=== PATIENT | female | born 1980 | race Caucasian/White ===

== ENCOUNTER 2018-04-11 22:06 | Emergency (ER) | payer OTHER ==
[2018-04-11] MEDS ORDERED: methylPREDNISolone SOD SUCCI 125 MG/2 ML VIAL IV STA (22:18)
[2018-04-11] MEDS ORDERED: EPINEPHrine 1 MG/ML 1 ML AMP IM STA ×2 (22:18→22:22)
[2018-04-11] MEDS ORDERED: FAMOTIDINE 20 MG/2 ML VIAL IV STA ×2 (22:18→22:22)
[2018-04-11] MEDS ORDERED: SODIUM CHLORIDE 0.9% 1,000 ML IV STA (22:22)
[2018-04-11 23:02] VITALS: RESP 18
--- NOTE | 2018-04-11 23:58 | ED ---
General Adult HPI - General Chief complaint: Allergic Reaction Stated complaint: Allergeric reaction Time Seen by Provider: 04/11/18 22:15 Source: patient, family, RN notes reviewed, old records reviewed Mode of arrival: ambulatory Limitations: no limitations - History of Present Illness Initial comments: Chief complaint history of present illness a 38-year-old female comes to emergency room with complaint of ALLERGIC reaction to unknown substance or chemical. Patient reports she takes for the that the milligrams of Benadryl at home prior to coming emergency room. Past history ALLERGIES to bee venom. - Related Data Home Medications Medication Instructions Recorded Confirmed ALPRAZolam [Xanax] 1 mg PO BID 08/08/16 04/11/18 DULoxetine HCL [Cymbalta] 60 mg PO BID 09/14/17 04/11/18 Previous Rx's Medication Instructions Recorded EPINEPHrine [Epipen 2-Aneudy] 0.3 mg SQ ONCE #1 auto.injct 04/11/18 predniSONE 20 mg PO DAILY #3 tab 04/11/18 Allergies Allergy/AdvReac Type Severity Reaction Status Date / Time bee venom protein (honey bee) Allergy Unknown Verified 04/11/18 22:12 Review of Systems ROS Statement: Those systems with pertinent positive or pertinent negative responses have been documented in the HPI. Review of systems patient reports she feels swollen eyes some difficulty breathing and shortness of breath no wheezing. She does report she also has anxiety. Patient does not know what caused the reaction was going on for approximately one hour. Patient denies any pain. Past medical problems anxiety and back pain. Surgery same. Family history noncontributory. Denies smoking. ROS Other: All systems not noted in ROS Statement are negative. Past Medical History Past Medical History: No Reported History History of Any Multi-Drug Resistant Organisms: None Reported Past Surgical History: Back Surgery Past Psychological History: Anxiety, Depression Smoking Status: Current every day smoker Past Alcohol Use History: Occasional Past Drug Use History: None Reported General Exam - General Exam Comments Initial Comments: General: The patient is awake and alert, states she's had an ALLERGIC reaction to some unknown substance. Vital signs are stable. Eye: Pupils are equal, round and reactive to light, extra-ocular movements are intact ; there is normal conjunctiva bilaterally. No signs of icterus. Feels as though her eyes are swelling, mild swelling noted. Ears, nose, mouth and throat: There are moist mucous membranes and no oral lesions. Neck: The neck is supple, there is no tenderness, no stridor Cardiovascular: There is a regular rate and rhythm. No murmur, rub or gallop is appreciated. Respiratory: Lungs are clear to auscultation, respirations are non-labored, breath sounds are equal. No wheezes, stridor, rales, or rhonchi. Feel short of breath, no wheezing Gastrointestinal: Soft, non-distended, non-tender abdomen without masses or organomegaly noted. There is no rebound or guarding present. No CVA tenderness. Bowel sounds are unremarkable. Back: There is no tenderness to palpation in the midline. There is no obvious deformity. No rashes noted. Musculoskeletal: Normal ROM, no tenderness, There is no pedal edema. There is no calf tenderness or swelling. Sensation intact. Pulses equal bilaterally 2+. Neurological: Alert oriented no neuro deficits. Skin: Patient was out in the sun today has some sunburn. Minimal no hives. Psychiatric: History of anxiety attacks in the past. Limitations: no limitations Course Vital Signs 04/11/18 04/11/18 22:08 23:01 Temperature 97.1 F L Pulse Rate 106 H 94 Respiratory 20 18 Rate Blood Pressure 126/85 123/75 O2 Sat by Pulse 100 97 Oximetry Medical Decision Making - Medical Decision Making Medical decision making; 38-year-old female who states she's had an ALLERGIC reaction to unknown substance. Past history significant to reactions to bee venom but she did not get stung today. The patient was given 0.2 mg of epinephrine IM, Pepcid IV, site Medrol IV. She had taken Benadryl by mouth prior to coming emergency room. While in emergency room the patient was monitored. Rested comfortably. Symptoms subsided. Patient be discharged home with advice to take prednisone 20 mg daily for the next 2 days. Continue with Benadryl 50 mg twice a day. And a prescription for new EpiPen to be taken. Return emergency room as needed Disposition Clinical Impression: Allergic reaction Disposition: HOME SELF-CARE Condition: Fair Instructions: Anaphylaxis (ED) Additional Instructions: Take Benadryl 50 mg twice daily. Prednisone 20 mg daily for the next 2 days. Use EpiPen as directed when needed. Follow-up with family physician return emergency room as needed Prescriptions: EPINEPHrine [Epipen 2-Aneudy] 0.3 mg SQ ONCE #1 auto.injct predniSONE 20 mg PO DAILY #3 tab Is patient prescribed a controlled substance at d/c from ED?: No Referrals: Kip Burch MD [Primary Care Provider] - 1-2 days Time of Disposition: 23:58
[2018-04-12 00:10] VITALS: BP 115/65; PULSE 90; TEMP 97.9
== END 2018-04-12 00:10 | disposition home or self-care (01) ==
LOC: EC 22:06
DX: T78.40XA Allergy, unspecified, initial encounter (principal); F41.9 Anxiety disorder, unspecified; F32.9 Major depressive disorder, single episode, unspecified; F17.200 Nicotine dependence, unspecified, uncomplicated; Z79.899 Other long term (current) drug therapy; Z91.030 Bee allergy status
CPT/HCPCS: 99283; 96374; 96375; 96361 ×2; 96372; J0171; J2930

== ENCOUNTER 2018-11-14 13:08 | Emergency (ER) | payer OTHER ==
[2018-11-14 13:30] VITALS: RESP 18
[2018-11-14] MEDS ORDERED: SODIUM CHLORIDE 0.9% 1,000 ML IV ONE (14:23)
[2018-11-14] MEDS ORDERED: diphenhydrAMINE 50 MG/ML 1 ML VIAL IVP STA (14:23)
[2018-11-14] MEDS ORDERED: KETOROLAC 30 MG/ML 1 ML VIAL IVP STA (14:23)
[2018-11-14] MEDS ORDERED: METOCLOPRAMIDE 5 MG/ML 2 ML VIAL IVP STA (14:23)
--- NOTE | 2018-11-14 15:35 | ED ---
Headache HPI - General Chief Complaint: Headache Stated Complaint: Headache Time Seen by Provider: 11/14/18 14:11 Mode of arrival: ambulatory Limitations: no limitations - History of Present Illness Initial Comments: 38-year-old female patient presents to the emergency department today for evaluation of headache 4 weeks. Patient states about a month ago she was diagnosed with ear infection. States that she did finish a amoxicillin one week ago. States that her headache has persisted and has become worse. States that the headache is frontal and occipital. States it worsens at times, but never really goes away. States she is sensitive to light and sound with this. States she is having some nausea. Patient states she has had nasal congestion and drainage is not improved after antibiotics. Patient denies history of migraine headache or similar symptoms. States that she is having some tingling to bilateral hands and feet. She denies any weakness to her extremities. She denies any head injury. States she is having some blurred vision with this but denies any double vision. Patient denies any recent rash, fever, chills, shortness breath, chest pain, abdominal pain, diarrhea, constipation, back pain , hematuria, dysuria, urinary urgency, urinary frequency, or any other complaints. - Related Data Home Medications Medication Instructions Recorded Confirmed Ibuprofen [Motrin] 800 mg PO DAILY PRN 11/14/18 11/14/18 Meclizine [Antivert] 12.5 mg PO BID 11/14/18 11/14/18 Previous Rx's Medication Instructions Recorded Amoxic-Pot Clav 875-125Mg 1 tab PO Q12HR #28 tablet 11/14/18 [Augmentin 875-125] predniSONE 50 mg PO DAILY #5 tablet 11/14/18 Allergies Allergy/AdvReac Type Severity Reaction Status Date / Time bee venom protein (honey bee) Allergy Unknown Verified 11/14/18 14:29 Review of Systems ROS Statement: Those systems with pertinent positive or pertinent negative responses have been documented in the HPI. ROS Other: All systems not noted in ROS Statement are negative. Past Medical History Past Medical History: No Reported History History of Any Multi-Drug Resistant Organisms: None Reported Past Surgical History: Back Surgery Past Psychological History: Anxiety, Depression Smoking Status: Current every day smoker Past Alcohol Use History: Occasional Past Drug Use History: None Reported General Exam Limitations: no limitations General appearance: alert, in no apparent distress, other (This is a well- developed, well-nourished adult female patient in no acute distress. Vital signs upon presentation are temperature 97.7F, pulse 94, respirations 18, blood pressure 120/86, pulse ox 100% on room air.) Eye exam: Present: normal appearance, PERRL, EOMI. Absent: scleral icterus, conjunctival injection, periorbital swelling ENT exam: Present: normal exam, normal oropharynx, mucous membranes moist, TM's normal bilaterally Respiratory exam: Present: normal lung sounds bilaterally. Absent: respiratory distress, wheezes, rales, rhonchi, stridor Cardiovascular Exam: Present: regular rate, normal rhythm, normal heart sounds. Absent: systolic murmur, diastolic murmur, rubs, gallop, clicks Neurological exam: Present: alert, oriented X3, CN II-XII intact, other ( Strength in all flexion wheezes 5/5.) Psychiatric exam: Present: normal affect, normal mood Skin exam: Present: warm, dry, intact, normal color. Absent: rash Course Vital Signs 11/14/18 13:27 Temperature 97.7 F Pulse Rate 94 Respiratory 18 Rate Blood Pressure 128/86 O2 Sat by Pulse 100 Oximetry Medical Decision Making - Medical Decision Making 38-year-old female patient presents to the emergency department today for evaluation of headache for the last 4 weeks. Patient states that started with sinus congestion and drainage. States her physician to treat her with amoxicillin and nasal spray however she did not improve once the medications are complete. Patient states she is having some light and sound sensitivity with this some blurred vision with this. Physical examination is unremarkable. Patient is neurologically intact with no focal deficits. CT brain did reveal 2 areas of old infarct, no acute intracranial abnormality. Patient did have evidence of acute sinusitis with extensive thickening of the maxillary, ethmoid , and sphenoid sinuses. We will treat for sinusitis with Augmentin and a 5 day course of steroids. I did inform patient of all CT results per she is instructed to follow-up with neurology for further evaluation. She is instructed to start taking an aspirin daily. Return parameters were discussed in detail. She verbalizes understanding and agrees with this plan - Radiology Data Radiology results: report reviewed, image reviewed CT sinuses without contrast obtained. Report is reviewed in its entirety. Impression by Dr. Enrique shows sinusitis. No focal bone obstruction CT brain without contrast was obtained. Report was reviewed in its entirety. Impression by Dr. Enrique shows compared to old exam isn't infarct in the right posterior parietal lobe that appears old. There is also an old multifocal lacunar infarct in the right caudate nucleus. No acute intracranial abnormality. Sinusitis noted that is also present on the old exam. Disposition Clinical Impression: Sinusitis, Headache Disposition: HOME SELF-CARE Condition: Good Instructions: Sinusitis (ED), Acute Headache (ED) Additional Instructions: Take medications as directed. Complete antibiotic prescription and steroid prescription in full. Follow up with your primary care physician for recheck in 1-2 days. Return immediately for any new, worsening, or concerning symptoms. Prescriptions: Amoxic-Pot Clav 875-125Mg [Augmentin 875-125] 1 tab PO Q12HR #28 tablet predniSONE 50 mg PO DAILY #5 tablet Is patient prescribed a controlled substance at d/c from ED?: No Referrals: Kip Burch MD [Primary Care Provider] - 1-2 days Abdirashid Dos Santos MD [STAFF PHYSICIAN] - 1-2 days Time of Disposition: 17:11
[2018-11-14] MEDS ORDERED: HYDROmorphone 1 MG/ML 1 ML SYRINGE IVP STA (16:22)
--- NOTE | 2018-11-14 16:42 | CT ---
EXAMINATION TYPE: CT sinus wo con DATE OF EXAM: 11/14/2018 COMPARISON: None HISTORY: Headache. CT DLP: 1147.6 mGycm. Automated Exposure Control for Dose Reduction was Utilized. TECHNIQUE: CT scan of the sinuses is performed without contrast, axial images are obtained, coronal r eformatted images are also reviewed. FINDINGS: There is extensive mucosal thickening in the sphenoid maxillary and ethmoid sinuses. I see no focal bone destruction. The maxilla is intact. Nasal bone is intact. I see no bony destructive pro cess. The orbital margins are intact. IMPRESSION: Sinusitis. No focal bone destruction.
--- NOTE | 2018-11-14 16:45 | CT ---
EXAMINATION TYPE: CT brain wo con DATE OF EXAM: 11/14/2018 COMPARISON: 09/21/2011 HISTORY: Headache. CT DLP: 1147.6 mGycm. Automated Exposure Control for Dose Reduction was Utilized. TECHNIQUE: CT scan of the head is performed without contrast. FINDINGS: Ventricles of normal size. There is no mass effect nor midline shift. There is no sign of i ntracranial hemorrhage. There is 2 cm hypodense area in the cortex right posterior parietal lobe cons istent with old infarct. There is small 5 mm linear area of hypodensity in the superior aspect right caudate nucleus. There is mucosal thickening in the paranasal sinuses. IMPRESSION: Compared to old exam there is an infarct in the right posterior parietal lobe that appears old. There is also an old multifocal lacunar infarct in the right caudate nucleus. No acute intracranial abnorm ality. Sinusitis noted that is also present on the old exam.
[2018-11-14] MEDS ORDERED: AMOXIC-POT CLAV 875MG STARTER 2 EACH TABLET PO STA (17:12)
[2018-11-14] MEDS ORDERED: ONDANSETRON 4 MG ODT STARTER PACK 2 TAB BTL PO STA (17:12)
[2018-11-14] MEDS ORDERED: ONDANSETRON 4 MG/2 ML VIAL IVP STA (17:12)
[2018-11-14 18:19] VITALS: BP 122/76; PULSE 90; TEMP 98.1
== END 2018-11-14 18:09 | disposition home or self-care (01) ==
LOC: EC 13:08
DX: J32.9 Chronic sinusitis, unspecified (principal); H53.8 Other visual disturbances; F17.200 Nicotine dependence, unspecified, uncomplicated; Z79.899 Other long term (current) drug therapy; Z91.030 Bee allergy status; Z86.73 Personal history of transient ischemic attack (TIA), and cerebral infarction without residual deficits
CPT/HCPCS: 70450; 70486; 99284; 96374; 96375 ×4; 96361 ×3; J1200; J2765; J2405; J1885; J1170; S0119

== ENCOUNTER 2018-11-28 09:09 | Emergency (ER) | payer OTHER ==
[2018-11-28 09:17] VITALS: RESP 18
--- NOTE | 2018-11-28 09:40 | ED ---
General Adult HPI - General Chief complaint: Extremity Injury, Upper Stated complaint: Arm Injury Time Seen by Provider: 11/28/18 09:10 Source: patient, RN notes reviewed Mode of arrival: ambulatory Limitations: no limitations - History of Present Illness Initial comments: This is a 38-year-old female presents emergency department after she had fallen down 6 steps at home. Patient states this occurred yesterday. Patient states she did hit her head has a little bit of an abrasion to the left cheek but states she did not lose consciousness she was not dazed she does not have a headache and she has no significant tenderness over that area. Patient comes in complaining of right humerus and right forearm pain. Patient denies any neck injury. Patient denies any chest back or abdominal injury. Patient denies any extremity injury. - Related Data Home Medications Medication Instructions Recorded Confirmed Ibuprofen [Motrin] 800 mg PO DAILY PRN 11/14/18 11/14/18 Meclizine [Antivert] 12.5 mg PO BID 11/14/18 11/14/18 Previous Rx's Medication Instructions Recorded Amoxic-Pot Clav 875-125Mg 1 tab PO Q12HR #28 tablet 11/14/18 [Augmentin 875-125] predniSONE 50 mg PO DAILY #5 tablet 11/14/18 Allergies Allergy/AdvReac Type Severity Reaction Status Date / Time bee venom protein (honey bee) Allergy Unknown Verified 11/28/18 09:17 Review of Systems ROS Statement: Those systems with pertinent positive or pertinent negative responses have been documented in the HPI. ROS Other: All systems not noted in ROS Statement are negative. Past Medical History Past Medical History: No Reported History History of Any Multi-Drug Resistant Organisms: None Reported Past Surgical History: Back Surgery Past Psychological History: Anxiety, Depression Smoking Status: Current every day smoker Past Alcohol Use History: Occasional Past Drug Use History: None Reported General Exam - General Exam Comments Initial Comments: GENERAL Patient is well-developed and well-nourished. Patient is in mild distress. EYES Patient's pupils are equal and round. Extraocular motion is intact SKIN Unremarkable NEURO The patient is alert and oriented 3 PYSCH Patient has normal interpersonal interactions. MUSCULOSKELETAL Patient's upper humerus is extremely tender as well as mid forearm. Patient has good flexion-extension of the wrist. Patient has good cap refill of all fingers patient has good sensation of all fingers. Limitations: no limitations Course Vital Signs 11/28/18 09:15 Temperature 97.9 F Pulse Rate 109 H Respiratory 18 Rate Blood Pressure 144/91 O2 Sat by Pulse 100 Oximetry Procedures - Orthopedic Splinting/Casting Injury #1 Side: right Upper Extremity Injury Location: long arm Upper Extremity Immobilizer: sling/shoulder immobilizer, posterior splint Medical Decision Making - Medical Decision Making X-ray of the forearm shows no acute fracture. X-ray of the humerus shows a comminuted spiral fracture. That is mildly displaced and angulated. After splint was applied patient still had good sensation and cap refill. Patient [facility] because she did not want to go there. I spoke with Dr. Cortez he did not want to accept the trauma. I spoke with Dr. Spaulding from [facility] and he wanted the patient sent to the emergency department and he would admit the patient and do surgery tomorrow. I spoke with Dr. Garzon from the emergency department she accepted the transfer. Disposition Clinical Impression: Comminuted fracture of humerus Disposition: OTHER INSTITUTION NOT DEFINED Is patient prescribed a controlled substance at d/c from ED?: No Referrals: Kip Burch MD [Primary Care Provider] - 1-2 days Time of Disposition: 11:27 - Out of Hospital Transfer - Req. Specs Out of Hospital Transfer - Requested Specifics: Other Emergency Center ( [facility])
--- NOTE | 2018-11-28 09:55 | XR ---
EXAMINATION TYPE: XR humerus RT , 2 VIEWS DATE OF EXAM ORDERED: 11/28/2018 HISTORY: Pain. COMPARISON: None. FINDINGS: There is a comminuted, mildly displaced and mildly angulated fracture of the mid diaphysis of the right humerus. IMPRESSION: COMMINUTED, MILDLY DISPLACED AND MILDLY ANGULATED FRACTURE OF THE MID DIAPHYSIS OF THE RIGHT HUMERUS. CODE A: INITIAL ENCOUNTER FOR CLOSED FRACTURE.
--- NOTE | 2018-11-28 09:56 | XR ---
EXAMINATION TYPE: XR forearm RT , 2 VIEWS DATE OF EXAM ORDERED: 11/28/2018 HISTORY: Pain. COMPARISON: None. FINDINGS: No long bone fractures identified. No other osseous lesion is seen. IMPRESSION: NORMAL RADIUS AND ULNA.
[2018-11-28] MEDS ORDERED: KETOROLAC 60 MG/2 ML VIAL IM STA (10:39)
[2018-11-28] MEDS ORDERED: ONDANSETRON ODT 4 MG TAB PO STA (10:39)
[2018-11-28] MEDS ORDERED: HYDROmorphone 1 MG/ML 1 ML SYRINGE IM STA (10:39)
[2018-11-28] MEDS ORDERED: LORazepam 0.5 MG TAB PO STA (11:23)
[2018-11-28 12:02] VITALS: BP 108/80; PULSE 100; TEMP 97.8
== END 2018-11-28 12:00 | disposition short-term general hospital (02) ==
LOC: EC 09:09
DX: S42.351A Displaced comminuted fracture of shaft of humerus, right arm, initial encounter for closed fracture (principal); F17.200 Nicotine dependence, unspecified, uncomplicated; Z79.899 Other long term (current) drug therapy; Z91.030 Bee allergy status; W10.9XXA Fall (on) (from) unspecified stairs and steps, initial encounter; Y92.009 Unspecified place in unspecified non-institutional (private) residence as the place of occurrence of the external cause
CPT/HCPCS: 73060; 73090; 99284; 29105; 96372 ×2; J1885; J1170

== ENCOUNTER → 2019-01-14 | Outpatient (CLI) | payer OTHER ==
--- NOTE | 2019-01-14 17:58 | US ---
EXAMINATION TYPE: US carotid duplex BILAT DATE OF EXAM: 01/14/2019 COMPARISON: NONE CLINICAL HISTORY: Z86.73 History of stroke. EXAM MEASUREMENTS: RIGHT: Peak Systolic Velocity (PSV) cm/sec ----- Right CCA: 88.7 ----- Right ICA: 94.3 ----- Right ECA: 108.2 ICA/CCA ratio: 1.1 RIGHT: End Diastole cm/sec ----- Right CCA: 28.9 ----- Right ICA: 50.3 ----- Right ECA: 35.3 LEFT: Peak Systolic Velocity (PSV) cm/sec ----- Left CCA: 106.4 ----- Left ICA: 108.2 ----- Left ECA: 85.4 ICA/CCA ratio: 1.0 LEFT: End Diastole cm/sec ----- Left CCA: 37.0 ----- Left ICA: 49.1 ----- Left ECA: 24.1 VERTEBRALS (direction of flow): Right Vertebral: Antegrade Left Vertebral: Antegrade Rhythm: Normal Minimal amount of plaque visualized bilaterally. No elevated velocities visualized, no significant st enosis. IMPRESSION: 1. No significant flow-limiting stenosis. 2. Some minimal plaque is present. Criteria for Assigning % of Stenosis / Diameter reduction (Estimation based on the indirect measurements of the internal carotid artery velocities (ICA PSV). 1. Normal (no stenosis)=ICA PSV < 125 cm/s: ratio < 2.0: ICA EDV<40 cm/s. 2. Less than 50% stenosis=ICA PSV < 125 cm/s: ratio < 2.0: ICA EDV<40 cm/s. 3. 50 to 69% stenosis=ICA PSV of 125 to 230 cm/s: ration 2.0 ? 4.0: ICA EDV 40-100 cm/s. 4. Greater than 70% stenosis to near occlusion= ICA PSV > 230 cm/s: ratio > 4.0: ICA EDV > 100 cm/s. 5. Near occlusion= ICA PSV velocities may be low or undetectable: variable ratio and ICA EDV. 6. Total occlusion=unable to detect flow.
--- NOTE | 2019-01-14 18:45 | ECHOF ---
Referral Reason:Z86.73 History of stroke MEASUREMENTS -------- HEIGHT: 165.1 cm WEIGHT: 88.5 kg BP: IVSd: 1.1 cm (0.6 - 1.1) LVIDd: 3.5 cm (3.9 - 5.3) LVPWd: 1.2 cm (0.6 - 1.1) IVSs: 1.4 cm LVIDs: 1.9 cm LVPWs: 1.8 cm LAESV Index (A-L): 25.16 ml/m Ao Diam: 2.7 cm (2.0 - 3.7) AV Cusp: 2.0 cm (1.5 - 2.6) LA Diam: 3.5 cm (2.7 - 3.8) MV EXCURSION: 9.371 mm (> 18.000) MV EF SLOPE: 71 mm/s (70 - 150) EPSS: 0.3 cm MV E Ancelmo: 0.94 m/s MV DecT: 143 ms MV A Ancelmo: 1.02 m/s MV E/A Ratio: 0.93 AV maxP.13 mmHg AV meanP.90 mmHg RAP: 5.00 mmHg RVSP: 29.32 mmHg FINDINGS -------- Resting tachycardia (HR>100bpm). This was a technically good study. The left ventricular size is normal. There is borderline concentric left ventricular hypertrophy. Overall left ventricular systolic function is normal with, an EF between 55 - 60 %. The right ventricle is normal in size and function. The left atrium is normal in size. The right atrium is normal in size. The aortic valve is trileaflet, and appears structurally normal. No aortic stenosis or regurgitation. There is trace mitral regurgitation. Trace tricuspid regurgitation present. The right ventricular systolic pressure, as measured by Dopp ler, is 29.32mmHg. The pulmonic valve is normal. The aortic root size is normal. Normal inferior vena cava with normal inspiratory collapse consistent with estimated right atrial pre ssure of 5 mmHg. The pericardium is normal. CONCLUSIONS -------- 1. Resting tachycardia (HR>100bpm). 2. This was a technically good study. 3. The left ventricular size is normal. 4. There is borderline concentric left ventricular hypertrophy. 5. Overall left ventricular systolic function is normal with, an EF between 55 - 60 %. 6. The right ventricle is normal in size and function. 7. The left atrium is normal in size. 8. The right atrium is normal in size. 9. The aortic valve is trileaflet, and appears structurally normal. No aortic stenosis or regurgitati on. 10. There is trace mitral regurgitation. 11. Trace tricuspid regurgitation present. 12. The right ventricular systolic pressure, as measured by Doppler, is 29.32mmHg. 13. The pulmonic valve is normal. 14. The aortic root size is normal. 15. Normal inferior vena cava with normal inspiratory collapse consistent with estimated right atrial pressure of 5 mmHg. 16. The pericardium is normal. COMPRESSOR HOUSE OPERATOR: Tiera Leija RDCS
== END | disposition home or self-care (01) ==
LOC: RADUSMAIN 14:46
PROVIDERS: ATTEND Psychiatry & Neurology Neurology
DX: Z09 Encounter for follow-up examination after completed treatment for conditions other than malignant neoplasm (principal); I51.7 Cardiomegaly; Z86.73 Personal history of transient ischemic attack (TIA), and cerebral infarction without residual deficits
CPT/HCPCS: 93306; 93880

== ENCOUNTER → 2023-02-05 | Outpatient (CLI) | payer OTHER ==
--- NOTE | 2023-02-05 15:39 | US ---
EXAMINATION TYPE: US thyroid st tissue head/neck DATE OF EXAM: 02/05/2023 COMPARISON: NONE CLINICAL HISTORY: 43-year-old female R22.1 NECK MASS. Right neck swelling TECHNIQUE: Multiple sonographic images of the thyroid gland are obtained. FINDINGS: GLAND SIZE: Right Lobe: 4.3 x 1.3 x 1.6 cm Overall Parenchyma: homogenous Left Lobe: 4.2 x 1.5 x 1.4 cm Overall Parenchyma: homogeneous Isthmus Thickness: 0.4 cm NODULES RIGHT: # of nodules measured on right: 0 LEFT: # of nodules measured on left: 0 ISTHMUS: # of nodules measured in the isthmus: 0 Bilateral neck scanned, right neck lymph node seen measuring 2.8 x 0.7 x 1.5cm, left neck lymph node seen measuring 2.0 x 0.8 x 1.4cm . IMPRESSION: 1. No discrete thyroid nodules. Normal measurements as above. 2. A borderline enlarged lymph node on each side of the neck measuring up to 1.5 cm short axis. Proba valeria reactive/post inflammatory. These should be followed clinically. Ultrasound follow-up can be perf ormed in 3 months to ensure stability/resolution. Rescan sooner if progressive enlargement or suspici ous clinical features develop.
--- NOTE | 2023-02-06 09:08 | MM ---
Reason for Exam: Screening (asymptomatic). Baseline mammogram. Patient History: Menarche at age 11. First Full-Term at age 17. Perimenopausal. Maternal aunt had breast cancer. Last menstrual period: 01/29/2023 Risk Values: Zuleima 5 year model risk: 0.6%. NCI Lifetime model risk: 7.0%. Prior Study Comparison: Patient's first Mammogram. Tissue Density: There are scattered fibroglandular densities. Findings: Analyzed By CAD. There is no suspicious group of microcalcifications or suspicious mass in either breast. Overall Assessment: Negative, BI-RAD 1 Management: Screening Mammogram of both breasts in 1 year. A clinical breast exam by your physician is recommended on an annual basis and results should be correlated with mammographic findings. Electronically signed and approved by: Clyde Valiente D.O.
== END | disposition home or self-care (01) ==
LOC: RADMAMWWP 11:13
PROVIDERS: ATTEND Family Medicine
DX: Z12.31 Encounter for screening mammogram for malignant neoplasm of breast (principal); I63.9 Cerebral infarction, unspecified; R00.0 Tachycardia, unspecified; R51.9 Headache, unspecified; R59.0 Localized enlarged lymph nodes
CPT/HCPCS: 76536; 77067; 93225; 93226

== ENCOUNTER → 2023-05-18 | Outpatient (CLI) | payer OTHER ==
--- NOTE | 2023-05-18 08:58 | US ---
EXAMINATION TYPE: US thyroid st tissue head/neck DATE OF EXAM: 05/18/2023 COMPARISON: NONE CLINICAL INDICATION: Female, 43 years old with history of E04.9 ENLARGED THYROID; dysphagia GLAND SIZE: Right Lobe: 4.7 x 1.2 x 1.6 cm Overall Parenchyma: homogenous Left Lobe: 4.1 x 1.1 x 1.5 cm Overall Parenchyma: homogeneous Isthmus Thickness: 0.4 cm NODULES RIGHT: # of nodules measured on right: 0 LEFT: # of nodules measured on left: 0 ISTHMUS: # of nodules measured in the isthmus: 0 Bilateral neck scanned, lymph nodes bilaterally = 2.7cm on the right and 1.8cm on the left IMPRESSION: 1. No suspicious thyroid nodules. 2. Scattered bilateral lymph nodes within the neck
--- NOTE | 2023-05-18 10:44 | FL ---
EXAMINATION TYPE: FL barium swallow DATE OF EXAM: 05/18/2023 COMPARISON: None HISTORY: Choking on pills and other items TECHNIQUE: A ladder contrast UGI study is performed. FINDINGS: Contrast double contrast study passes through the esophagus. No intraluminal or extramural defects ar e evident. No secondary or tertiary contractions are evident. No reflux was evident. There is complet e stripping of the esophageal bolus in the horizontal drinking position. IMPRESSIONS: 1. No acute abnormality air-contrast esophagram
== END | disposition home or self-care (01) ==
LOC: RADUSWWP 08:26
PROVIDERS: ATTEND Family Medicine
DX: E04.9 Nontoxic goiter, unspecified (principal); R59.9 Enlarged lymph nodes, unspecified
CPT/HCPCS: 74220; 76536

== ENCOUNTER → 2024-02-05 | Outpatient (CLI) | payer OTHER ==
--- NOTE | 2024-02-05 13:16 | CA ---
Exercise Stress Test Report Name: Amairani Whiting Exam Date: 02/05/2024 09:08 Exam Location: [place] Stress Ht (in): 65 Wt (lb): 233 BSA: 2.11 Ordering Phys: Jess Ruiz MD Referring Phys: JESS RUIZ Technologist: Romel Age: 44 Gender: F : 1980 Procedure CPT: Indications: R00.0 tachycardia ICD-10 Codes: Patient History: Short of breath Medications: Meds past 24 hrs: Pretest Chest Pain: STRESS TEST Lucas Protocol Exercise Duration (min:sec): 06:[address] Depressions (mm): Angina Score: Edward Score: Resting HR (bpm): 99 Peak HR (bpm): 156 Resting BP (mmHg): 118 / 81 Peak BP (mmHg): 187 / 88 MPHR: 174 Target HR: 148 % MPHR: 90 METS: 7.1 Total Dose: Peak Dose: Atropine: Double Product: 44170 BP Response: Stress Termination: Infusion complete Stress Symptoms: No chest pain or symptoms Stress Summary: ECG ANALYSIS Resting ECG: Normal sinus rhythm Stress ECG: No significant ST-T wave changes diagnostic for ischemia CONCLUSIONS Poor excess tolerance for age achieving 7.1 METS Nonischemic ECG response to treadmill exercise Normal hemodynamic and clinical response treadmill exercise Overall normal study Dr Lyle Irby (Electronically Signed) Final Date: 05 February 2024 13:15
--- NOTE | 2024-02-05 22:35 | CA ---
Transthoracic Echo Report Name: Amairani Whiting Age: 44 Gender: F : 1980 Exam Date: 02/05/2024 08:42 Exam Location: [place] [facility] Echo Ht (in): 65 Wt (lb): 232 Ordering Physician: Atul Ruiz MD Attending/Referring Phys: Sara IVY [employer] Erector Alexandrea Haque RDCS Procedure CPT: Indications: R00.0 tachycardia Cardiac Hx: Technical Quality: Good Contrast 1: Total Dose (mL): Contrast 2: Total Dose (mL): MEASUREMENTS (Male / Female) Normal Values 2D ECHO LV Diastolic Diameter PLAX 4.3 cm 4.2 - 5.9 / 3.9 - 5.3 cm LV Systolic Diameter PLAX 3.1 cm IVS Diastolic Thickness 1.1 cm 0.6 - 1.0 / 0.6 - 0.9 cm LVPW Diastolic Thickness 1.2 cm 0.6 - 1.0 / 0.6 - 0.9 cm LV Relative Wall Thickness 0.5 RV Internal Dim ED PLAX 3.2 cm LA Systolic Diameter LX 2.8 cm 3.0 - 4.0 / 2.7 - 3.8 cm LV Diastolic Volume MOD BP 84.9 cm??? 67 - 155 / 56 - 104 cm??? LV Systolic Volume MOD BP 24.8 cm??? - 58 / 19 - 49 cm??? LV Ejection Fraction MOD BP 70.8 % >= 55 % LV Cardiac Index MOD BP 2486.9 cm???/min???m??? LV Diastolic Volume MOD 4C 81.8 cm??? LV Systolic Volume MOD 4C 25.9 cm??? LV Ejection Fraction MOD 4C 68.3 % LV Cardiac Index MOD 4C 2313.8 cm???/min???m??? LV Diastolic Length 4C 7.3 cm LV Systolic Length 4C 5.8 cm LV Diastolic Volume MOD 2C 82.7 cm??? LV Systolic Volume MOD 2C 22.1 cm??? LV Ejection Fraction MOD 2C 73.3 % LV Cardiac Index MOD 2C 2510.3 cm???/min???m??? LV Diastolic Length 2C 7.9 cm LV Systolic Length 2C 6.5 cm LA Volume 40.8 cm??? 18 - 58 / 22 - 52 cm??? LA Volume Index 18.2 cm???/m??? 16 - 28 cm???/m??? M-MODE Aortic Root Diameter MM 3.2 cm DOPPLER AV Peak Velocity 139.6 cm/s AV Peak Gradient 7.8 mmHg MV Area PHT 2.4 cm??? Mitral E Point Velocity 84.2 cm/s Mitral A Point Velocity 87.4 cm/s Mitral E to A Ratio 1.0 MV Deceleration Time 318.7 ms TR Peak Velocity 194.0 cm/s TR Peak Gradient 15.1 mmHg Right Ventricular Systolic Press 19.3 mmHg FINDINGS Left Ventricle Left ventricular ejection fraction is estimated at 60-65 %. Left ventricular cavity size normal. Mildly increased septal wall thickness. Mildly increased posterior wall thickness. Right Ventricle Normal right ventricular size. Right ventricular systolic pressure within normal limits. Right Atrium Normal right atrial size. Left Atrium Normal left atrial size. Mitral Valve Structurally normal mitral valve. Trace mitral regurgitation. Aortic Valve Trileaflet aortic valve. No aortic valve stenosis or regurgitation. Tricuspid Valve Structurally normal tricuspid valve. Mild tricuspid regurgitation. Pulmonic Valve Structurally normal pulmonic valve. Trace pulmonic regurgitation. Pericardium No pericardial effusion. Aorta Normal size aortic root and proximal ascending aorta. CONCLUSIONS Left ventricular ejection fraction is estimated at 60-65 %. Mild concentric LVH No significant valvular dysfunction No pericardial effusion Previewed by: Dr Lyle Irby (Electronically Signed) Final Date: 05 February 2024 22:35
== END | disposition home or self-care (01) ==
LOC: RADECHMAIN 08:25
PROVIDERS: ATTEND Family Medicine
DX: R00.0 Tachycardia, unspecified (principal)
CPT/HCPCS: 93017; 93306

== ENCOUNTER → 2024-08-08 | Outpatient (CLI) | payer OTHER ==
--- NOTE | 2024-08-15 18:05 | MR ---
EXAMINATION TYPE: MR lumbar spine wo con DATE OF EXAM: 08/08/2024 COMPARISON: None HISTORY: Chronic lower back pain, hx surgery. CONTRAST: 0 mL intravenous Gadavist. TECHNIQUE: Multiplanar, multisequence images of the lumbar spine were acquired. FINDINGS: Cord terminates at the L1-L2 level. Disc heights are preserved. Disc hydration T12 L1-L3 4 have normal hydration. There is preserved disc height with minimal disc desiccation L4-5. Disc desic cation is present at L5-S1. L5-S1: Disc spacers present L5-S1. Postsurgical changes are present L5-S1. Pedicle screws are present in L5 and S1 no spinal canal stenosis is present. No focal disc herniation is evident. L4-L5: No significant disc bulge or disc herniation. No spinal canal stenosis. No foraminal stenosi s. Facet hypertrophy is present. L3-L4: No significant disc bulge or disc herniation. No spinal canal stenosis. No foraminal stenosi s. Facet hypertrophy is present. This has posterior lateral thecal sac compression. This is greater on the left. L2-L3: No significant disc bulge or disc herniation. No spinal canal stenosis. No foraminal stenosi s. L1-L2: No significant disc bulge or disc herniation. No spinal canal stenosis. No foraminal stenosi s. T12-L1: No significant disc bulge or disc herniation. No spinal canal stenosis. No foraminal stenos is. IMPRESSION: 1. Postsurgical changes L5-S1. No spinal canal stenosis or neural foraminal stenosis present. 2. Some mild facet hypertrophy with posterior lateral thecal sac contact L4-5 and L3-4. [facility], , 08/15/2024 6:02 PM
== END | disposition home or self-care (01) ==
LOC: RADMRIMAIN 13:18
PROVIDERS: ATTEND Orthopaedic Surgery Orthopaedic Surgery of the Spine
DX: M54.50 Low back pain, unspecified
CPT/HCPCS: 72148

== ENCOUNTER 2024-09-22 10:28 | Emergency (ER) | payer OTHER ==
[2024-09-22 10:50] VITALS: TEMP 98
--- NOTE | 2024-09-22 11:14 | ED ---
Lower Extremity Injury HPI - General Chief Complaint: Extremity Injury, Lower Stated Complaint: L knee pain Time Seen by Provider: 09/22/24 10:47 Source: patient, RN notes reviewed Mode of arrival: ambulatory Limitations: no limitations - History of Present Illness Initial Comments: 44 year old female presents to the emergency department with chief complaint of left knee pain. She states that a week ago she began to have shooting pains in her left knee without cause. She denies previous history of knee pain and recent trauma. Her history is significant for lumbar back pain for which she underwent surgery, however states that she no longer has back pain or radiculopathy. She reports that left knee pain is exacerbated with flexion and rotation. She states that it has been swollen, tender to touch, and boggy but she denies warmth. She denies shortness of breath, paresthesias, and saddle anesthesia. - Related Data Home Medications Medication Instructions Recorded Confirmed Ibuprofen [Motrin] 800 mg PO DAILY PRN 11/14/18 11/14/18 Meclizine [Antivert] 12.5 mg PO BID 11/14/18 11/14/18 Previous Rx's Medication Instructions Recorded Amoxic-Pot Clav 875-125Mg 1 tab PO Q12HR #28 tablet 11/14/18 [Augmentin 875-125] predniSONE 50 mg PO DAILY #5 tablet 11/14/18 predniSONE 50 mg PO DAILY #5 tab 09/22/24 Allergies Allergy/AdvReac Type Severity Reaction Status Date / Time bee venom protein (honey bee) Allergy Unknown Verified 09/22/24 10:50 Review of Systems ROS Statement: Those systems with pertinent positive or pertinent negative responses have been documented in the HPI. ROS Other: All systems not noted in ROS Statement are negative. Past Medical History Past Medical History: No Reported History History of Any Multi-Drug Resistant Organisms: None Reported Past Surgical History: Back Surgery Past Psychological History: Anxiety, Depression Smoking Status: Current every day smoker Past Alcohol Use History: Occasional Past Drug Use History: None Reported General Exam Limitations: no limitations General appearance: alert, in no apparent distress Head exam: Present: atraumatic, normocephalic, normal inspection Eye exam: Present: normal appearance, PERRL, EOMI. Absent: scleral icterus, conjunctival injection, periorbital swelling ENT exam: Present: normal exam, mucous membranes moist Neck exam: Present: normal inspection. Absent: tenderness, meningismus, lymphadenopathy Respiratory exam: Present: normal lung sounds bilaterally. Absent: respiratory distress, wheezes, rales, rhonchi, stridor Cardiovascular Exam: Present: regular rate, normal rhythm, normal heart sounds. Absent: systolic murmur, diastolic murmur, rubs, gallop, clicks GI/Abdominal exam: Present: soft, normal bowel sounds. Absent: distended, t enderness, guarding, rebound, rigid Extremities exam: Present: normal inspection, full ROM, normal capillary refill. Absent: tenderness, pedal edema, joint swelling, calf tenderness Left Knee exam: Present: tenderness, swelling (+ Fernanda + anterior drawer sign) Back exam: Present: normal inspection Neurological exam: Present: alert, oriented X3, CN II-XII intact Psychiatric exam: Present: normal affect, normal mood Skin exam: Present: warm, dry, intact, normal color. Absent: rash Course Vital Signs 09/22/24 10:48 Temperature 98 F Pulse Rate 108 H Respiratory 20 Rate Blood Pressure 128/86 O2 Sat by Pulse 97 Oximetry Medical Decision Making - Medical Decision Making Was pt. sent in by a medical professional or institution (, PA, TAVERN CAR ATTENDANT, urgent care, hospital, or retirement...) When possible be specific @ -No Did you speak to anyone other than the patient for history (EMS, parent, family, police, friend...)? What history was obtained from this source @ -No Did you review nursing and triage notes (agree or disagree)? Why? @ -I reviewed and agree with nursing and triage notes Were old charts reviewed (outside hosp., previous admission, EMS record, old EKG, old radiological studies, urgent care reports/EKG's, retirement records)? Report findings @ -No old charts were reviewed Differential Diagnosis (chest pain, altered mental status, abdominal pain women, abdominal pain men, vaginal bleeding, weakness, fever, dyspnea, syncope, headache, dizziness, GI bleed, back pain, seizure, CVA, palpatations, mental health, musculoskeletal)? @ -Effusion, ligament derangement knee, leg fracture, bursitis, meniscus tear EKG interpreted by me (3pts min.). @ -noone X-rays interpreted by me (1pt min.). @ -X-ray left knee showing no significant abnormality no acute fracture CT interpreted by me (1pt min.). @ -None done U/S interpreted by me (1pt. min.). @ -US venous Doppler left leg negative for acute DVT What testing was considered but not performed or refused? (CT, X-rays, U/S, labs)? Why? @ -None What meds were considered but not given or refused? Why? @ -None Did you discuss the management of the patient with other professionals (professionals i.e. , PA, TAVERN CAR ATTENDANT, lab, RT, psych nurse, social media marketing manager, laboratory engineer, teacher, animal services officer, registered nurse hh case manager)? Give summary @ -No Was smoking cessation discussed for >3mins.? @ -No Was critical care preformed (if so, how long)? @ -No Were there social determinants of health that impacted care today? How? (Homelessness, low income, unemployed, alcoholism, drug addiction, transportation, low edu. Level, literacy, decrease access to med. care, long-term, rehab)? @ -No Was there de-escalation of care discussed even if they declined (Discuss DNR or withdrawal of care, Hospice)? DNR status @ -No What co-morbidities impacted this encounter? (DM, HTN, Smoking, COPD, CAD, Cancer, CVA, ARF, Chemo, Hep., AIDS, mental health diagnosis, sleep apnea, morbid obesity)? @ -None Was patient admitted / discharged? Hospital course, mention meds given and route, prescriptions, significant lab abnormalities, going to OR and other pertinent info. @Discharge patient presented for left knee pain without acute injury negative x- ray and ultrasound patient has left knee bursitis, tendinitis. Patient discharged with supportive treatment return parameters discussed. Undiagnosed new problem with uncertain prognosis? @ -No Drug Therapy requiring intensive monitoring for toxicity (Heparin, Nitro, Insulin, Cardizem)? @ -No Were any procedures done? @ -No Diagnosis/symptom? @ -Left knee pain Acute, or Chronic, or Acute on Chronic? @ -Acute Uncomplicated (without systemic symptoms) or Complicated (systemic symptoms)? @ -Uncomplicated Side effects of treatment? @ -No Exacerbation, Progression, or Severe Exacerbation? @ -No Poses a threat to life or bodily function? How? (Chest pain, USA, ID, pneumonia, PE, COPD, DKA, ARF, appy, cholecystitis, CVA, Diverticulitis, Homicidal, Suicidal, threat to staff... and all critical care pts) @ -No Disposition Clinical Impression: Left knee pain, Knee bursitis Disposition: HOME SELF-CARE Condition: Stable Instructions (If sedation given, give patient instructions): Knee Pain (ED) Additional Instructions: Please return to the Emergency Department if symptoms worsen or any other concerns. Prescriptions: predniSONE 50 mg PO DAILY #5 tab Is patient prescribed a controlled substance at d/c from ED?: No Referrals: Atul Ruiz MD [Primary Care Provider] - 1-2 days Time of Disposition: 13:33
--- NOTE | 2024-09-22 12:11 | US ---
EXAMINATION TYPE: US venous doppler duplex LE LT DATE OF EXAM: 09/22/2024 11:39 AM COMPARISON: NONE CLINICAL INDICATION: Female, 44 years old with history of Leg pain; , Pain, Swelling. Left knee pain TECHNIQUE: The lower extremity deep venous system is examined utilizing real time linear array sonog david with graded compression, color doppler sonography, and spectral doppler. SIDE PERFORMED: left FINDINGS: VESSELS IMAGED: Common Femoral Vein Deep Femoral Vein Greater Saphenous Vein * Femoral Vein Popliteal Vein Small Saphenous Vein * Proximal Calf Veins (* superficial vessels) Left Leg: No evidence of DVT. Rouleaux flow left popliteal vein , Color Doppler imaging shows patenc y of the vessels. Spectral waveforms are within normal limits. IMPRESSION: 1. No acute thrombus evident within the left lower extremity by ultrasound. 2. Impending thrombus formation should be considered with Rouleaux flow in the left popliteal vein. [facility], , 09/22/2024 12:09 PM
--- NOTE | 2024-09-22 13:12 | XR ---
EXAMINATION TYPE: XR knee complete LT DATE OF EXAM: 09/22/2024 1:02 PM COMPARISON: None. CLINICAL INDICATION: Female, 44 years old with history of Left knee pain, TECHNIQUE: XR knee complete LT view(s) obtained. 3 view left knee FINDINGS: No acute fractures or dislocations evident. Joint spaces are preserved. Follow up exams can be performed 7-10 days from acute trauma for continued pain. IMPRESSION: 1. No acute osseous abnormality left knee [facility], , 09/22/2024 1:10 PM
[2024-09-22 14:15] VITALS: BP 121/84; PULSE 94; RESP 18
== END 2024-09-22 14:15 | disposition home or self-care (01) ==
LOC: EC 10:28
DX: M70.52 Other bursitis of knee, left knee (principal); F17.200 Nicotine dependence, unspecified, uncomplicated; Z91.030 Bee allergy status
CPT/HCPCS: 99284

== ENCOUNTER → 2025-03-02 | Outpatient (CLI) | payer OTHER ==
--- NOTE | 2025-03-02 13:15 | MM ---
Reason for Exam: Screening (asymptomatic). Last mammogram was performed 2 year(s) and 1 month(s) ago. Patient History: Menarche at age 11. First Full-Term at age 17. Perimenopausal. Maternal aunt had breast cancer. Risk Values: Zuleima 5 year model risk: 0.6%. NCI Lifetime model risk: 6.8%. Prior Study Comparison: 02/05/2023 Bilateral MG screening mammo w CAD, [facility]. Tissue Density: There are scattered areas of fibroglandular density. Findings: Analyzed By CAD. There is no suspicious group of microcalcifications or new suspicious mass in either breast. Overall Assessment: Negative, BI-RAD 1 Management: Screening Mammogram of both breasts in 1 year. . Patient should continue monthly self-breast exams. A clinical breast exam by your physician is recommended on an annual basis. This exam should not preclude additional follow-up of suspicious palpable abnormalities. Note on Zuleima scores and lifetime risk: 1. A Zuleima score greater than 3% is considered moderate risk. If this is the case, consider specialist referral to assess eligibility for a risk reducing agent. 2. If overall lifetime risk for the development of breast cancer is 20% or higher, the patient may qualify for future screening with alternating mammogram and breast MRI. [facility], , 03/02/2025 1:12 PM. Electronically signed and approved by: Parker Starks M.D. Radiologis
== END | disposition home or self-care (01) ==
LOC: RADMAMWWP 12:43
PROVIDERS: ATTEND Family Medicine
DX: Z12.31 Encounter for screening mammogram for malignant neoplasm of breast (principal); R92.323 Mammographic fibroglandular density, bilateral breasts; Z80.3 Family history of malignant neoplasm of breast
CPT/HCPCS: 77067

== ENCOUNTER 2025-05-12 15:57 | Emergency (ER) | payer OTHER ==
[2025-05-12 16:29] VITALS: TEMP 97.8
[2025-05-12 18:34] VITALS: BP 122/90; PULSE 92; RESP 18
[2025-05-12] MEDS: RABIES VACCINE (PCEC) 2.5 UNIT KIT IM ONE (19:01)
[2025-05-12] MEDS: RABIES IMM GLOB 300 UNIT/2 ML VIAL IM ONE (19:07)
--- NOTE | 2025-05-12 19:24 | ED ---
General Adult HPI - General Chief complaint: Skin/Abscess/Foreign Body Stated complaint: Possible bat bite Time Seen by Provider: 05/12/25 16:27 Source: patient Mode of arrival: ambulatory Limitations: no limitations - History of Present Illness Initial comments: 45-year-old female presenting with concerns for possible bat bite/scratch. She reports that she was sitting outside in her barn when a bat was coming close to her and she killed it using a bat. She states that her hand felt a bit strange and she was unsure if it scratched her or bit her. There were no garcia to indicate a bite or scratch. However she also reports that 1 was in her house last week. - Related Data Home Medications Medication Instructions Recorded Confirmed Ibuprofen [Motrin] 800 mg PO DAILY PRN 11/14/18 11/14/18 Meclizine [Antivert] 12.5 mg PO BID 11/14/18 11/14/18 Previous Rx's Medication Instructions Recorded Amoxic-Pot Clav 875-125Mg 1 tab PO Q12HR #28 tablet 11/14/18 [Augmentin 875-125] predniSONE 50 mg PO DAILY #5 tablet 11/14/18 predniSONE 50 mg PO DAILY #5 tab 09/22/24 Allergies Allergy/AdvReac Type Severity Reaction Status Date / Time bee venom protein (honey bee) Allergy Unknown Verified 05/15/25 14:22 Review of Systems ROS Statement: Those systems with pertinent positive or pertinent negative responses have been documented in the HPI. ROS Other: All systems not noted in ROS Statement are negative. Past Medical History Past Medical History: No Reported History Additional Past Medical History / Comment(s): chronic back pain History of Any Multi-Drug Resistant Organisms: None Reported Past Surgical History: Back Surgery, Orthopedic Surgery Additional Past Surgical History / Comment(s): back fusion Past Psychological History: Anxiety, Depression Smoking Status: Current every day smoker Past Alcohol Use History: Occasional Past Drug Use History: None Reported General Exam Limitations: no limitations General appearance: alert, in no apparent distress Head exam: Present: atraumatic, normocephalic, normal inspection Eye exam: Present: normal appearance, EOMI Neck exam: Present: normal inspection. Absent: meningismus Respiratory exam: Absent: respiratory distress Neurological exam: Present: alert, oriented X3 Psychiatric exam: Present: normal affect, normal mood Skin exam: Present: warm, dry, normal color Course Vital Signs 05/12/25 05/12/25 16:26 18:33 Temperature 97.8 F Pulse Rate 110 H 92 Respiratory 20 18 Rate Blood Pressure 141/89 122/90 O2 Sat by Pulse 98 98 Oximetry Medical Decision Making - Medical Decision Making Was pt. sent in by a medical professional or institution ([facility], SINKER P[employer]ER, urgent care, hospital, or fci...) When possible be specific @ -No Did you speak to anyone other than the patient for history (EMS, parent, family, police, friend...)? What history was obtained from this source @ -No Did you review nursing and triage notes (agree or disagree)? Why? @ -I reviewed and agree with nursing and triage notes Were old charts reviewed (outside hosp., previous admission, EMS record, old EKG, old radiological studies, urgent care reports/EKG's, fci records)? Report findings @ -No old charts were reviewed Differential Diagnosis (chest pain, altered mental status, abdominal pain women, abdominal pain men, vaginal bleeding, weakness, fever, dyspnea, syncope, headache, dizziness, GI bleed, back pain, seizure, CVA, palpatations, mental health, musculoskeletal)? @ -Not applicable EKG interpreted by me (3pts min.). @ -As above X-rays interpreted by me (1pt min.). @ -None done CT interpreted by me (1pt min.). @ -None done U/S interpreted by me (1pt. min.). @ -None done What testing was considered but not performed or refused? (CT, X-rays, U/S, labs)? Why? @ -None What meds were considered but not given or refused? Why? @ -None Did you discuss the management of the patient with other professionals (professionals i.e. [facility], S[employer], lab, RT, psych nurse, vp digital marketing social media and crm, it applications developer, teacher, wildlife officer, protective services case worker)? Give summary @ -No Was smoking cessation discussed for >3mins.? @ -No Was critical care preformed (if so, how long)? @ -No Were there social determinants of health that impacted care today? How? (Homelessness, low income, unemployed, alcoholism, drug addiction, transportation, low edu. Level, literacy, decrease access to med. care, [facility], rehab)? @ -No Was there de-escalation of care discussed even if they declined (Discuss DNR or withdrawal of care, Hospice)? DNR status @ -No What co-morbidities impacted this encounter? (DM, HTN, Smoking, COPD, CAD, Cancer, CVA, ARF, Chemo, Hep., AIDS, mental health diagnosis, sleep apnea, morbid obesity)? @ -None Was patient admitted / discharged? Hospital course, mention meds given and route, prescriptions, significant lab abnormalities, going to OR and other pertinent info. @ -Already 5-year-old female concerned for a bat scratch/bite. Patient is given her first dose of the rabies vaccine and the immunoglobulin. She is then provided with an order for the remaining 3 doses. Follow-up with PCP. Report back to ER with any new or worsening symptoms. Discussed return parameters and answered all questions. Patient conveyed verbal understanding and agreed to the plan. I discussed this case in detail with my attending Dr. Dalton Undiagnosed new problem with uncertain prognosis? @ -No Drug Therapy requiring intensive monitoring for toxicity (Heparin, Nitro, Insulin, Cardizem)? @ -No Were any procedures done? @ -No Diagnosis/symptom? @ -Bat bite Acute, or Chronic, or Acute on Chronic? @ -Acute Uncomplicated (without systemic symptoms) or Complicated (systemic symptoms)? @ -Uncomplicated Side effects of treatment? @ -No Exacerbation, Progression, or Severe Exacerbation? @ -No Poses a threat to life or bodily function? How? (Chest pain, USA, DC, pneumonia, PE, COPD, DKA, ARF, appy, cholecystitis, CVA, Diverticulitis, Homicidal, Suicidal, threat to staff... and all critical care pts) @ -Unlikely Disposition Clinical Impression: Bat bite wound Disposition: HOME SELF-CARE Condition: Fair Instructions (If sedation given, give patient instructions): Rabies Vaccine (By injection), Rabies Immune Globulin (By injection), Rabies (ED) Additional Instructions: Follow-up with your PCP. Report back to ER with any new or worsening symptoms. You will need repeat doses of the rabies vaccination on 05/15, 05/19, and 05/26. You may either take the order to the [facility] lab, or on weekends or holidays you may bring the order to the emergency department to have your doses administered. Is patient prescribed a controlled substance at d/c from ED?: No Referrals: Atul Ruiz MD [Primary Care Provider] - 1-2 days Time of Disposition: 19:24
== END 2025-05-12 19:37 | disposition home or self-care (01) ==
LOC: EC 15:57
DX: S61.459A Open bite of unspecified hand, initial encounter (principal); F17.200 Nicotine dependence, unspecified, uncomplicated; Z91.030 Bee allergy status; Z23 Encounter for immunization; W55.81XA Bitten by other mammals, initial encounter
CPT/HCPCS: 90377; 90471; 90675; 96372; 99282